=== PATIENT | female | born 1995 | race Caucasian/White ===

== ENCOUNTER 2016-05-23 13:47 | Emergency (ER) | payer BC ==
[~2016-05-23] VITALS: Ht 157.5 cm; Wt 57.2 kg
[2016-05-23 13:51] VITALS: TEMP 36.9; Ht 157.5 cm; Wt 57.2 kg
[2016-05-23] MEDS ORDERED: BCPILLS PO (15:19)
[2016-05-23 15:25] LABS: HEMATOCRIT 39.8 % (37-47); MEAN CELL VOLUME 83.4 fL (80-100); MEAN CORPUSCULAR HEMOGLOBIN 28.3 pg (25-34); MEAN CORPUSCULAR HGB CONC 33.9 g/dl (32-36); MEAN PLATELET VOLUME 10.1 fL (7.4-10.4); PLATELET COUNT 252 K/uL (130-400); RED BLOOD COUNT 4.77 M/uL (4.2-5.4); WHITE BLOOD COUNT 6.94 K/uL (4.8-10.8)
[2016-05-23 15:45] LABS: CREATININE 0.76 mg/dl (0.60-1.20)
[2016-05-23 15:46] LABS: BUN/CREATININE RATIO 12.6 (10-20); CALCIUM 9.3 mg/dl (8.5-10.1); MAGNESIUM 2.2 mg/dl (1.8-2.4); POTASSIUM 3.7 mmol/L (3.5-5.1)
[2016-05-23 15:56] LABS: THYROID STIMULATING HORMONE 2.3 uIu/ml (0.300-4.500)
--- NOTE | 2016-05-23 15:58 | EMERGENCY ROOM VISIT NOTE ---
History Report prepared by Velasquez: Annetta Chiu Under the Supervision of: Dr. Juan Cabello M.D. First contact with patient: 14:45 Chief Complaint: RECTAL BLEEDING Stated Complaint: TINGLING LEGS, LIGHT RED BM THIS MORNING Nursing Triage Summary: Red blood in stool this morning Bilateral tingling in lower extremities x 1 week. History of Present Illness The patient is a 21 year old female who presents to the Emergency Room with complaints of an episode of rectal bleeding this morning. The patient states that she noticed some specks of blood throughout her stool. This was her only episode of bloody stool. She has not eaten anything that would have changed the color of her stool. She did not have any blood on the tissue when she wiped. She has never had a similar episode in the past. The patient also complains of bilateral leg heaviness over the past week. She notes that her legs feel different when she moves. She denies any falls, pain, or tingling. She has been able to exercise without any difficulty. The patient has an appointment scheduled on Saturday for the issues with her legs, but decided to come to the ED today due to the rectal bleeding. She denies any bleeding of her gums when she brushes her teeth. She has not had any unexpected weight gain or loss. Denies urinary symptoms, vomiting, nausea, abdominal pain, or other complaints. Source of History: patient Onset: this morning Position: other (GI) Quality: other (specks of blood) Timing: other (episode) Associated Symptoms: No abdominal pain, No nausea, No urinary symptoms, No vomiting Note: Other symptoms: leg heaviness Review of Systems See HPI for pertinent positives & negatives. A total of 10 systems reviewed and were otherwise negative. Past Medical & Surgical Medical Problems: (1) No Known Active Medical Problems Family History Patient reports no known family medical history. Social History Smoking Status: Never Smoker Smokeless Tobacco Use: No Alcohol Use: none Housing Status: lives with roommate Occupation Status: student Current/Historical Medications Scheduled Control Pills ( Control Pills), 1 TAB PO DAILY Allergies Coded Allergies: No Known Allergies (Unverified , 05/23/16) Physical Exam Vital Signs Date Time Temp Pulse Resp B/P Pulse Ox O2 Delivery O2 Flow Rate FiO2 05/23/16 17:06 70 18 113/81 100 Room Air 05/23/16 13:51 36.9 109 16 141/87 98 Room Air Physical Exam GENERAL: Patient is in no acute distress. HEENT: No acute trauma, normocephalic atraumatic, mucous membranes moist, no nasal congestion, no scleral icterus. NECK: No stridor, no adenopathy, no meningismus, trachea is midline. LUNGS: Clear to auscultation bilaterally, no wheeze, no rhonchi, breath sounds equal. HEART: Without murmurs gallops or rubs, regular rate and rhythm. ABDOMEN: Soft, nontender, bowel sounds positive, no hernias, no peritonitis. RECTAL: Brown stool, heme negative, small anal tear to the 12 oclock position, no active bleeding, no mass by digital exam. EXTREMITIES: No cyanosis or edema, full range of motion of all the joints without pain or difficulty, no signs for acute trauma. NEUROLOGIC: Oriented x 3, no acute motor or sensory deficits, no focal weakness , 2/4 patellar and Achilles reflexes bilaterally, normal strength in the lower extremities bilaterally. SKIN: No rash, no jaundice, no diaphoresis. Medical Decision & Procedures Laboratory Results 05/23/16 15:10 05/23/16 15:10 Test 05/23/16 15:10 Red Blood Count 4.77 M/uL (4.2-5.4) Mean Corpuscular Volume 83.4 fL (80-100) Mean Corpuscular Hemoglobin 28.3 pg (25-34) Mean Corpuscular Hemoglobin Concent 33.9 g/dl (32-36) RDW Standard Deviation 37.6 fL (36.4-46.3) RDW Coefficient of Variation 12.4 % (11.5-14.5) Mean Platelet Volume 10.1 fL (7.4-10.4) Urine Test NEG (NEG) Anion Gap 8.0 mmol/L (3-11) Est Creatinine Clear Calc Drug Dose 92.6 ml/min Estimated GFR () 130.0 Estimated GFR (Non- 112.1 BUN/Creatinine Ratio 12.6 (10-20) Calcium Level 9.3 mg/dl (8.5-10.1) Magnesium Level 2.2 mg/dl (1.8-2.4) Total Bilirubin 1.1 mg/dl (0.2-1) Aspartate Amino Transf (AST/SGOT) 20 U/L (15-37) Alanine Aminotransferase (ALT/SGPT) 24 U/L (12-78) Alkaline Phosphatase 51 U/L (45-117) Total Protein 7.9 gm/dl (6.4-8.2) Albumin 4.0 gm/dl (3.4-5.0) Globulin 3.9 gm/dl (2.5-4.0) Albumin/Globulin Ratio 1.0 (0.9-2) Thyroid Stimulating Hormone (TSH) 2.300 uIu/ml (0.300-4.500) Lyme Disease IgG Antibody NEG (NEG) Lyme Disease IgM Antibody NEG (NEG) Laboratory results reviewed by me. Urine dip negative for blood or infection. ED Course 1446: The patient was evaluated in room B11B. A complete history and physical exam was performed. 1702: Reevaluated the patient. She was resting comfortably. Discussed results and discharge instructions: She verbalized understanding and agreement. The patient is ready for discharge. Medical Decision Differential includes but is not limited to electrolyte imbalance, , UTI, thyroid disorder, anemia, rectal or GI bleeding. There is no leukocytosis or concerning anemia. No significant electrolyte abnormality, kidney failure, hepatitis. The patient appears to be in a euthyroid state. Urine dip does not suggest infection. testing is negative. Lyme disease testing is negative. On exam, the reflexes are normal in the lower extremities and there are no focal neurologic deficits. The patient is not febrile or toxic. By exam, there was no evidence for rectal bleeding. There was a small tear to the anal mucosa which may have been bleeding earlier. The patient is doing well, she has been reassured. I will have her use some Vaseline to the anal area to help with healing. She can talk with her doctor in a few days as scheduled about her leg numbness, at this point, the cause for the lower extremity symptoms is unclear. She was encouraged to return for worsening symptoms. Impression Primary Impression: Leg numbness Additional Impression: Rectal bleeding Scribe Attestation The scribe's documentation has been prepared under my direction and personally reviewed by me in its entirety. I confirm that the note above accurately reflects all work, treatment, procedures, and medical decision making performed by me. Departure Information Dispostion Home / Self-Care Referrals No Doctor, Assigned (PCP) Rey, Kam, M.D. Patient Instructions My [facility] Additional Instructions see your doctor as scheduled Saturday return for worsening symptoms vasoline to the rectal area may help healing lab testing today was all ok Problem Qualifiers
[2016-05-23 16:59] LABS: LYME DISEASE AB IGG NEG (NEG); LYME DISEASE AB IGM NEG (NEG)
[2016-05-23 17:06] VITALS: BP 113/81; PULSE 70; O2SAT 100
== END 2016-05-23 17:13 | disposition home or self-care (01) ==
LOC: C.EDB 13:49
DX: K62.5 Hemorrhage of anus and rectum (principal); R20.2 Paresthesia of skin

== ENCOUNTER 2020-03-30 17:53 | Inpatient (IN) ==
[2020-03-30] MEDS ORDERED: OXYTOCIN 30 UNITS/500 ML BAG IV PRN ×2 (18:30→22:48)
[2020-03-30] MEDS ORDERED: BUPIVACAINE 0.25% 30 ML VIAL ONE (18:32)
[2020-03-30] MEDS ORDERED: SODIUM CHLORIDE 0.9% INJ 10 ML VIAL ONE (18:32)
[2020-03-30] MEDS ORDERED: ePHEDrine sulfate 50 MG/ML AMP ONE (18:32)
[2020-03-30] MEDS ORDERED: fentaNYL 2MCG/ML ROPIVACAINE 1.25MG/ML 100 ML BAG EPI ONE (18:33)
[2020-03-30] MEDS ORDERED: fentaNYL citrate 100 MCG/2 ML VIAL ONE (18:33)
[2020-03-30] MEDS: LACTATED RINGER'S 1,000 ML IV PRN ×2 (19:03→20:42)
[2020-03-30 19:08] LABS: Hematocrit (blood only) 33.3 % (37-47); Hemoglobin 11.7 g/dL (12.0-16.0); Mean Corpuscular Hemoglobin 31.5 pg (25-34); Mean Corpuscular Hgb Conc 35.1 g/dL (32-36); Mean Corpuscular Volume 89.8 fL (80-100); Mean Platelet Volume 11.5 fL (7.4-10.4); Platelet Count 169 K/uL (130-400); RDW Coefficient of Variation 12.7 % (11.5-14.5); RDW Standard Deviation 41.5 fL (36.4-46.3); Red Blood Count 3.71 M/uL (4.2-5.4); White Blood Count 14.05 K/uL (4.8-10.8)
--- NOTE | 2020-03-30 19:10 | Anesthesiology Consultation ---
Date of Service March 30, 2020 Assessment & Plan (1) Encounter for pre-operative examination: Chart Review Chart Review: Acceptable Risk for Surgery and Patient NOT seen in Pre Admission Testing Consults Requested none History Height/Weight Height: 5 ft 2 in Weight: 72.575 kg Allergies Allergy/AdvReac Type Severity Reaction Status Date / Time No Known Allergies Allergy Verified 03/30/20 10:09 Medications Home Medications Medication Instructions Recorded Confirmed Last Taken prenat.vits,stephon,[id number] 1 tab PO DAILY 08/31/19 03/30/20 03/30/20 Active Medications Generic Name Dose Route Start Last Admin Trade Name Freq PRN Reason Stop Dose Admin Lactated Ringer's 1,000 mls @ 125 mls/hr 03/30/20 18:30 03/30/20 19:03 Lr IV 04/01/20 18: 999 mls/hr .Q8H PRN Administration L&D Protocol Protocol Past Medical History Medical History Family planning, BCP ( control pills) maintenance No known health problems Varicella vaccination Well adult health check Past Family History Family History Other No pertinent family history Past Surgical History Surgical History No pertinent past surgical history Social History Smoking Status: Never smoker Hx Alcohol Use: No Hx Substance Use: No Physical Exam Vital Signs Last Vital Signs Temp 36.8 C 03/30/20 18:02 Pulse 88 03/30/20 19:04 Resp 20 03/30/20 18:02 BP 125/93 03/30/20 18:15 Pulse Ox 100 03/30/20 19:04 Testing Laboratory Results 03/30/20 19:00
[2020-03-30] MEDS ORDERED: CALCIUM CARBONATE 500 MG CHEWABLE TAB ONE (20:50)
[2020-03-30] MEDS ORDERED: CALCIUM CARBONATE 500 MG CHEWABLE TAB PO PRN (21:18)
--- NOTE | 2020-03-30 21:25 | History & Physical Report ---
Date of Service March 30, 2020 Assessment & Plan (1) Active labor at term: making good progress. begin 2nd stage soon. ts categ 1. Admission and Anticipated Discharge Date Admission Date: March 30, 2020 History of Present Illness Chief Complaint: rupture of membranes and labor. Primary Care Provider: Kam Le DO 25yo at 39wk ega presents to L&D with cc of srom and labor. Contractions regular. Was in office today and was 4cm. On arrival in L&D confir med gross SROM and was 4-5cm. Wanted epidural and just prior to receiving was 9cm per nurse. PNC uncomplicated. PNL rh pos, ri, gbs neg. OBH: g1 GYNH: nl paps, no stds Allergies Allergy/AdvReac Type Severity Reaction Status Date / Time No Known Allergies Allergy Verified 03/30/20 10:09 Home Medications Medication Instructions Recorded Confirmed Type prenat.vits,stephon,ewk-rtaq-cowbl 1 tab PO DAILY 08/31/19 03/30/20 History Patient History Medical History Family planning, BCP ( control pills) maintenance No known health problems Varicella vaccination Well adult health check Surgical History No pertinent past surgical history Family History Other No pertinent family history Social History (Updated 08/31/19 @ 10:53 by Opal Pacheco) Smoking Status: Never smoker Second Hand Exposure: No; Hx Alcohol Use: No Hx Substance Use: No Preferred Language: American Communication Ability: Effective Beliefs That Will Affect Care: None marital status: marital status details: Kareem Kowalski (27) [phone] Current Living Situation: Spouse Current Living Situation Comment: lives with spouse, dog current occupational status: employed current occupation: [employer] Other Information That Helps Us Care for You: No Feels Safe at Home: Yes Safety Concerns: Feels Safe At This Time Childhood Exposure to Second-Hand Smoke: No caffeine: No Dental Care, Regularly: Yes Physical Activity Frequency: 3-4 Times per Week Seatbelt Use: always Assistive Devices: None Review of Systems no fever Physical Exam Constitutional: WD/WN, vitals as above Psychiatric: A+Ox3, euthymic affect Genitourinary: Manual OB Exam: + cervical dilation (9 per nurse) OB Exam Monitor Tracing: + external FHT monitor used (125 mod variability), + external uterine monitor used (q2-3), + category I and + normal FHT variability Results & Data ([facility]) Vital Signs (Past 12 Hours) Vital Signs Temp Pulse Resp BP Pulse Ox 03/30/20 21:15 93 H 99 03/30/20 21:10 92 H 98 03/30/20 21:06 96 H 147/80 H 03/30/20 21:05 85 98 03/30/20 21:00 93 H 98 03/30/20 20:55 107 H 98 03/30/20 20:51 104 H 139/76 03/30/20 20:50 105 H 98 03/30/20 20:45 102 H 98 03/30/20 20:40 95 H 136/69 99 03/30/20 20:35 122 H 99 03/30/20 20:31 97.9 F 18 03/30/20 20:30 100 H 97 03/30/20 20:25 87 98 03/30/20 20:20 92 H 132/62 98 03/30/20 20:16 94 H 130/57 L 03/30/20 20:15 96 H 99 03/30/20 20:14 118 H 174/135 H 03/30/20 20:10 115 H 98 03/30/20 20:05 112 H 99 03/30/20 20:00 96 H 99 03/30/20 19:59 97 H 148/69 H 03/30/20 19:55 96 H 132/77 100 03/30/20 19:50 97 H 100 03/30/20 19:49 85 123/70 03/30/20 19:47 129 H 132/75 03/30/20 19:45 111 H 100 03/30/20 19:44 171 H 73 L 03/30/20 19:43 97 H 150/85 H 03/30/20 19:40 104 H 140/82 03/30/20 19:39 98 H 100 03/30/20 19:38 90 145/93 H 03/30/20 19:34 97 H 182/100 H 100 03/30/20 19:31 90 141/92 H 03/30/20 19:29 113 H 99 03/30/20 19:24 107 H 100 03/30/20 19:19 102 H 100 03/30/20 19:14 91 H 100 03/30/20 19:09 90 100 03/30/20 19:04 88 100 03/30/20 18:15 93 H 125/93 03/30/20 18:02 98.2 F 20 Code Status & VTE Plan VTE Prophylaxis Plan VTE Prophylaxis will be ordered: No Coding Level of Care Code None Diagnoses Active labor at term
--- NOTE | 2020-03-30 21:36 | Labor Progress Brief Note ---
Date of Service March 30, 2020 Subjective Reason For Note: Routine Evaluation pt had begun pushing. Assessment & Plan (1) Active labor at term: will cont 2nd stage. fhts improved to baseline 125. good variability Admission and Anticipated Discharge Date Admission Date: March 30, 2020 Physical Exam Genitourinary: on arrival in room fhts 70s. pt pushing . SVE c/c/+2 tried lateral positions and then fhts improved to 110s in knee chest. will cont to push in this position for now. Results & Data ([facility]) Vital Signs (Past 12 Hours) Vital Signs Temp Pulse Resp BP Pulse Ox 03/30/20 21:30 85 100 03/30/20 21:25 98 H 100 03/30/20 21:20 90 98 03/30/20 21:15 93 H 99 03/30/20 21:10 92 H 98 03/30/20 21:06 96 H 147/80 H 03/30/20 21:05 85 98 03/30/20 21:00 93 H 98 03/30/20 20:55 107 H 98 03/30/20 20:51 104 H 139/76 03/30/20 20:50 105 H 98 03/30/20 20:45 102 H 98 03/30/20 20:40 95 H 136/69 99 03/30/20 20:35 122 H 99 03/30/20 20:31 97.9 F 18 03/30/20 20:30 100 H 97 03/30/20 20:25 87 98 03/30/20 20:20 92 H 132/62 98 03/30/20 20:16 94 H 130/57 L 03/30/20 20:15 96 H 99 03/30/20 20:14 118 H 174/135 H 03/30/20 20:10 115 H 98 03/30/20 20:05 112 H 99 03/30/20 20:00 96 H 99 03/30/20 19:59 97 H 148/69 H 03/30/20 19:55 96 H 132/77 100 03/30/20 19:50 97 H 100 03/30/20 19:49 85 123/70 03/30/20 19:47 129 H 132/75 03/30/20 19:45 111 H 100 03/30/20 19:44 171 H 73 L 03/30/20 19:43 97 H 150/85 H 03/30/20 19:40 104 H 140/82 03/30/20 19:39 98 H 100 03/30/20 19:38 90 145/93 H 03/30/20 19:34 97 H 182/100 H 100 03/30/20 19:31 90 141/92 H 03/30/20 19:29 113 H 99 03/30/20 19:24 107 H 100 03/30/20 19:19 102 H 100 03/30/20 19:14 91 H 100 03/30/20 19:09 90 100 03/30/20 19:04 88 100 03/30/20 18:15 93 H 125/93 03/30/20 18:02 98.2 F 20 Coding Level of Care Code None Diagnoses Active labor at term
[2020-03-30] MEDS ORDERED: NALOXONE HCL 0.4 MG/1 ML VIAL/CARP IV PRN (22:05)
[2020-03-30] MEDS ORDERED: ePHEDrine sulfate 50 MG/ML AMP IV PRN (22:05)
[2020-03-30] MEDS ORDERED: NALOXONE HCL 1 MG in SODIUM CHLORIDE 0.9% 1000ML 1,000 ML IV PRN (22:05)
[2020-03-30] MEDS ORDERED: fentaNYL 2MCG/ML ROPIVACAINE 1.25MG/ML 100 ML BAG EPI PRN (22:05)
[2020-03-30] MEDS ORDERED: diphenhydrAMINE 50 MG/ML VIAL IV PRN (22:05)
--- NOTE | 2020-03-30 22:28 | Delivery Summary ---
Vaginal Delivery Summary Date of Service March 30, 2020 Vaginal Delivery Summary and 2nd Degree LAC The patient dilated to complete and pushed to deliver a viable male infant Apgars 9 and 9 via over 2nd degree perineal laceration. Mouth and nose bulb suctioned at perineum. Shoulders and body delivered with ease. Infant was vigorous and crying at . Cord clamped at 30 seconds of life and infant to maternal abdomen where the cord was then doubly clamped and cut. Placenta delivered spontaneously and intact, three-vessel cord. Hemostasis achieved with dilute pitocin and uterine massage and drainage of the bladder for approximately 75 cc under sterile conditions. Laceration repaired in usual fashion with 3-0 vicryl in layers. Right labial hematoma noted, no active bleeding site about 3x2cm ovoid. Cervix and sulci intact. EBL 300 cc. Mother and baby stable re covery. [facility] Vaginal Delivery Charge Delivery Type Details: and 2nd Degree LAC
--- NOTE | 2020-03-30 22:44 | Anesthesia Procedure Note ---
Date of Service March 30, 2020 Anesthesia Post Epidural Note Vital Signs Vital Signs: Temp Pulse Resp BP Pulse Ox 36.6 C 94 H 18 139/82 98 03/30/20 20:31 03/30/20 22:36 03/30/20 20:31 03/30/20 22:36 03/30/20 21:55 Notes Mental Status: alert / awake / arousable and participated in evaluation Nausea / Vomiting: adequately controlled Pain: adequately controlled Airway Patency, RR, SpO2: stable & adequate BP & HR: stable & adequate Hydration State: stable & adequate Neuraxial Anesthesia: was administered and sensory block is resolving Anesthetic Complications: no major complications apparent and Pt Satisfied with anesthetic care Epidural: Removed without complications and With tip intact
[2020-03-30] MEDS ORDERED: BENZOCAINE 20% AER SPR 82.5 GM CAN EXT PRN (22:48)
[2020-03-30] MEDS ORDERED: ACETAMINOPHEN 325 MG TAB PO PRN (22:48)
[2020-03-30] MEDS ORDERED: oxyCODONE/ACETAMINOPHEN 5mg/325mg TAB PO PRN (22:48)
[2020-03-30] MEDS ORDERED: HYDROCORTISONE ACETATE 25 MG SUPP PR PRN (22:48)
[2020-03-30] MEDS ORDERED: DIPHTHERIA/TETANUS/PERTUSSIS 0.5 ML SYR/VIAL IM ONE (22:48)
[2020-03-30] MEDS ORDERED: SUPERCREAM 0.870% 15 GM JAR EXT PRN (22:48)
[2020-03-30] MEDS ORDERED: OXYTOCIN 20 UNITS in LACTATED RINGER'S 1,000 ML IV SCH (22:48)
[2020-03-30] MEDS: IBUPROFEN 600 MG TAB PO PRN (23:46)
--- NOTE | 2020-03-31 07:43 | Obstetrical Progress Note ---
Date of Service <Araeblla Lezama - Last Filed: 03/31/20 08:12> March 31, 2020 Assessment & Plan <Arabella Lesly Lezama - Last Filed: 03/31/20 08:12> (1) state: PPD #1 - PNL: Rh pos, RI, GBS neg, COVID neg - Feels well today. Eating well, voiding well, ambulating well. - Pain well controlled with ibuprofen 600mg Q4H PRN - Routine care -- OOB, ambulation, diet progression as tolerated - Will get bladder scan to evaluate for concern of urinary retention; plan for cooper if needed. - After discharge will have 6 week follow-up with Dr. Barnes. Subjective <Arabellasundar Lezama - Last Filed: 03/31/20 08:12> Pasquale Kowalski is a 25 y/o female who is PPD #1 following spontaneous vaginal delivery at 39 weeks. She reports feeling well overall this morning. Minimal abdominal cramping and 2/10 pain well managed on analgesics. Voiding without dysuria; does note some concern about possible urinary retention but admits to not drinking much water over the past 2 days. Tolerating meals overnight without difficulty, nausea, or vomiting. Patient has been able to ambulate some. She is passing gas. Has persistent lochia with some improvement this morning; no passage of clots. Currently . Review of Systems Denies fever or chills. Denies shortness of breath or cough. Denies chest pain. Denies breast pain. Denies dysuria. Denies leg pain or leg swelling. Denies headache or changes in vision. Physical Exam <Arabella Lezama - Last Filed: 03/31/20 08:12> General: Alert, oriented. No acute distress. Cardiac: Regular rate and rhythm. No murmurs. Respiratory: Clear to auscultation bilaterally a/p, no wheezes/rales/rhonchi. No increased work of breathing. Symmetrical chest rise. No respiratory distress. Abdomen: Soft, nontender, nondistended. Bowel sounds present. Uterus: Uterine fundus firm, palpable at umbilicus on left. Lower Extremities: No lower extremity edema or swelling. No deep calf pain. Velia's negative bilaterally. Results & Data ([facility]) <Arabella PetersonRoland Lezama, DO - Last Filed: 03/31/20 08:12> Vital Signs (Past 12 Hours) Vital Signs Temp Pulse Pulse Resp BP BP Pulse Ox 03/31/20 03:50 36.5 C 77 18 122/78 99 03/31/20 01:30 36.9 C 83 18 116/73 98 03/31/20 00:50 37 C 87 18 130/69 98 03/31/20 00:14 37 C 83 18 136/76 99 03/31/20 00:13 94 H 180/89 H 03/30/20 23:36 37.2 C 80 18 130/81 98 03/30/20 23:21 88 18 130/78 03/30/20 23:06 90 127/73 03/30/20 23:03 37.2 C 80 18 129/69 99 03/30/20 22:45 37.4 C 82 18 122/79 03/30/20 22:36 94 H 139/82 03/30/20 22:30 37.4 C 104 H 18 134/72 99 03/30/20 22:21 92 H 137/76 03/30/20 22:15 96 H 143/84 H 03/30/20 22:14 96 H 139/82 03/30/20 21:55 106 H 98 03/30/20 21:50 113 H 99 03/30/20 21:45 94 H 99 03/30/20 21:40 89 100 03/30/20 21:35 95 H 100 03/30/20 21:30 85 100 03/30/20 21:25 98 H 100 03/30/20 21:20 90 98 03/30/20 21:15 93 H 99 03/30/20 21:10 92 H 98 03/30/20 21:06 96 H 147/80 H 03/30/20 21:05 85 98 03/30/20 21:00 93 H 98 03/30/20 20:55 107 H 98 03/30/20 20:51 104 H 139/76 03/30/20 20:50 105 H 98 03/30/20 20:45 102 H 98 03/30/20 20:40 95 H 136/69 99 03/30/20 20:35 122 H 99 03/30/20 20:31 36.6 C 18 03/30/20 20:30 100 H 97 03/30/20 20:25 87 98 03/30/20 20:20 92 H 132/62 98 03/30/20 20:16 94 H 130/57 L 03/30/20 20:15 96 H 99 03/30/20 20:14 118 H 174/135 H 03/30/20 20:10 115 H 98 03/30/20 20:05 112 H 99 03/30/20 20:00 96 H 99 03/30/20 19:59 97 H 148/69 H 03/30/20 19:55 96 H 132/77 100 03/30/20 19:50 97 H 100 03/30/20 19:49 85 123/70 03/30/20 19:47 129 H 132/75 03/30/20 19:45 111 H 100 03/30/20 19:44 171 H 73 L 03/30/20 19:43 97 H 150/85 H <Nataliia Barnes MD, FACOG - Last Filed: 03/31/20 08:42> Co-Signing Physician Notes Resident Physician Supervision Note: I was present with Dr. Lezama during the history and exam. I discussed the case with the resident and agree with the findings and plan as documented in the note. Any exceptions or clarifications are listed here: doing well, routine care. need to see if emptying bladder well, with bladder scan. nurse aware. Documented By: Nataliia Barnes MD, FACOG Resident Activity Tracking <Arabella Lezama, DO - Last Filed: 03/31/20 08:12> Resident Involvement: Resident Care Provided Care Provided: OB Delivery
[2020-03-31] MEDS: IBUPROFEN 600 MG TAB PO PRN ×3 (08:01→21:33)
[2020-03-31] MEDS: DOCUSATE SODIUM 100 MG CAP PO SCH ×2 (08:01→21:31)
[2020-03-31 22:33] VITALS: O2SAT 99
[2020-04-01] MEDS: IBUPROFEN 600 MG TAB PO PRN (05:21)
[2020-04-01] MEDS: DOCUSATE SODIUM 100 MG CAP PO SCH (07:42)
--- NOTE | 2020-04-01 07:42 | Obstetrical Progress Note ---
Date of Service <Arabella Lezama DO - Last Filed: 04/01/20 07:54> April 01, 2020 Assessment & Plan <Arabella Lezama DO - Last Filed: 04/01/20 07:54> (1) state: PPD #2 - PNL: Rh pos, RI, GBS neg, COVID neg - Feels well today. Eating well and ambulating well. - Currently w/ cooper catheter in place due to urinary retention. Will remove cooper catheter for bladder challenge. Monitor urine output. - Pain well controlled with ibuprofen 600mg Q4H PRN - Routine care -- OOB, ambulation, continue diet progression as tolerated - After discharge will have 6 week follow-up with Dr. Barnes. Subjective <Arabella Lezama DO - Last Filed: 04/01/20 07:54> Pasquale Kowalski is a 25 y/o female who is PPD #2 following spontaneous vaginal delivery at 39 weeks. She reports feeling well overall this morning. Minimal abdominal cramping and 2/10 pain well managed on analgesics. Patient did have urinary retention yesterday and a cooper catheter was placed yesterday in the early afternoon. Patient states that she "does not feel as full" and this intervention has provided relief. Tolerating meals overnight without difficulty. Patient has been able to ambulate some. + passing gas; no bowel movement. Has persistent lochia with some improvement this morning. Currently . Review of Systems Denies fever or chills. Denies shortness of breath or cough. Denies chest pain. Denies breast pain. Denies dysuria. Denies leg pain or leg swelling. Denies headache or changes in vision. Physical Exam <Arabella Lezama DO - Last Filed: 04/01/20 07:54> General: Alert, oriented. No acute distress. Cardiac: Regular rate and rhythm. No murmurs. Respiratory: Clear to auscultation bilaterally a/p, no wheezes/rales/rhonchi. No increased work of breathing. Symmetrical chest rise. No respiratory distress. Abdomen: Soft, nontender, nondistended. Bowel sounds present. Uterus: Uterine fundus firm, palpable 1 cm below umbilicus. Lower Extremities: No lower extremity edema or swelling. No deep calf pain. Cassandra n's negative bilaterally. Results & Data ([facility]) <Arabella Lezama DO - Last Filed: 04/01/20 07:54> Vital Signs (Past 12 Hours) Vital Signs Temp Pulse Resp BP Pulse Ox 04/01/20 02:00 36.6 C 79 16 113/72 99 03/31/20 21:35 36.7 C 88 18 125/82 99 <Freddie Vale MD - Last Filed: 04/01/20 08:15> Co-Signing Physician Notes Patient seen and evaluated and agree with the above finding and plan. Stable for discharge. Resident Activity Tracking <Arabella Lezama DO - Last Filed: 04/01/20 07:54> Resident Involvement: Resident Care Provided Care Provided: OB Delivery
[2020-04-01 08:05] VITALS: BP 128/91; PULSE 80; TEMP 97.3
== END 2020-04-01 11:30 | disposition home or self-care (01) | DRG 807 ==
LOC: OPB 17:53 → 4S1 17:54 → 4S2 03-31 01:35

== ENCOUNTER 2021-09-02 00:02 | Inpatient (IN) ==
--- NOTE | 2021-09-02 00:45 | History & Physical Report ---
Date of Service September 02, 2021 Assessment & Plan (1) Encounter for supervision of normal in multigravida: Plan: Contractions - will allow patient to walk halls, recheck cervix to eval for labor. History of Present Illness Chief Complaint: contractions Primary Care Provider: Kam Le DO 26yo @ 38 06/08, presents with ctx. +FM, no VB. No ROM. with Close interval -Delivered 03/30/20 MOderna x 2 last in June has had flu vaccine. Right cp cystic area, ? head shape, narrow frontal area, pericardial fluid noted 2.4 mm *MFM consult (05/16/21 @ [facility] [place]) *mildly dilated right renal pelvis on anatomy @ [facility] *US @ 32weeks to assess pyelectasis @ [facility] [place] (07/19/21)-normal kidneys; no pyelectasis seen *cfdna low risk Allergies Allergy/AdvReac Type Severity Reaction Status Date / Time No Known Allergies Allergy Verified 08/28/21 08:03 Home Medications Medication Instructions Recorded Confirmed Type prenat.vits,stephon,xfb-onos-jenxr 1 tab PO DAILY 08/31/19 08/28/21 History docusate sodium [Colace] PO PRN 01/23/21 08/28/21 History calcium carbonate [Tums] PO 07/21/21 08/28/21 History Patient History Medical History (Updated 01/23/21 @ 13:56 by Mariya Castro, ONEL) Active labor at term Family planning, BCP ( control pills) maintenance No known health problems state Supervision of normal first Varicella vaccination Well adult health check Surgical History No pertinent past surgical history Family History (Updated 01/23/21 @ 16:07 by Mariya Castro RN) Other No pertinent family history Denies family history of Ovarian cancer Prostate cancer Breast cancer Colorectal cancer Social History (Updated 01/23/21 @ 16:09 by Mariya Castro, ONEL) Smoking Status: Never smoker Second Hand Exposure: No; Hx Alcohol Use: No Hx Substance Use: No Preferred Language: Estonian Communication Ability: Effective Visual Impairment: No Limitations Hearing Ability: Normal Beliefs That Will Affect Care: None marital status: marital status details: Kareem Starkster (28) [phone] Current Living Situation: Spouse and Family Current Living Situation Comment: lives with spouse and son, dog current occupational status: employed current occupation: [employer] Feels Safe at Home: Yes Safety Concerns: Feels Safe At This Time Childhood Exposure to Second-Hand Smoke: No caffeine: No Dental Care, Regularly: Yes Physical Activity Frequency: 3-4 Times per Week Seatbelt Use: always Assistive Devices: None Review of Systems All systems reviewed & are unremarkable except as noted in HPI & below Physical Exam Constitutional: WD/WN, vitals as above Respiratory: normal respiratory effort, lungs clear to auscultation no respiratory distress Cardiovascular: Rate/Rhythm: regular rate and regular rhythm Gastrointestinal (Abdomen): Inspection/Auscultation: abdomen normal to inspection Percussion/Palpation: abdomen soft; abdomen nontender Gravid. No s/s chorio or abruption. Skin: no rashes, warm and dry Psychiatric: A+Ox3, euthymic affect Results & Data ([facility]) Vital Signs (Past 12 Hours) Vital Signs Temp Pulse Resp BP 09/02/21 00:13 36.7 C 93 H 18 129/79 Monitoring External Monitor FHT cat 1 [place] Q 2-4 SVE 3/80/-3 Coding Level of Care Code None Diagnoses Encounter for supervision of normal in multigravida Z34.80
[2021-09-02] MEDS ORDERED: OXYTOCIN 30 UNITS/500 ML BAG IV PRN ×3 (02:57→10:37)
--- NOTE | 2021-09-02 03:00 | Labor Progress Brief Note ---
Date of Service September 02, 2021 Subjective Ctx have gotten stronger. FHT Cat 1 [place] Q 2-3 SVE 4-5/80/-3. Bulging membranes. Asking for epidural. Results & Data ([facility]) Vital Signs (Past 12 Hours) Vital Signs Temp Pulse Resp BP 09/02/21 00:13 36.7 C 93 H 18 129/79 Coding Level of Care Code None
[2021-09-02] MEDS: LACTATED RINGER'S 1,000 ML IV PRN ×2 (03:15→04:22)
[2021-09-02] MEDS ORDERED: SODIUM CHLORIDE 0.9% INJ 10 ML VIAL ONE (03:53)
[2021-09-02] MEDS ORDERED: fentaNYL citrate 100 MCG/2 ML VIAL ONE (03:53)
[2021-09-02] MEDS ORDERED: ePHEDrine sulfate 50 MG/ML AMP ONE (03:53)
[2021-09-02] MEDS ORDERED: fentaNYL 2MCG/ML ROPIVACAINE 1.25MG/ML 100 ML BAG EPI ONE (03:53)
[2021-09-02] MEDS ORDERED: BUPIVACAINE 0.25% 30 ML VIAL ONE (03:53)
[2021-09-02 03:55] LABS: Hematocrit (blood only) 37.9 % (37-47); Mean Corpuscular Hemoglobin 31.3 pg (25-34); Mean Corpuscular Hgb Conc 34.3 g/dL (32-36); Mean Corpuscular Volume 91.1 fL (80-100); Mean Platelet Volume 10.9 fL (7.4-10.4); Platelet Count 221 K/uL (130-400); RDW Coefficient of Variation 12.4 % (11.5-14.5); RDW Standard Deviation 41.3 fL (36.4-46.3); Red Blood Count 4.16 M/uL (4.2-5.4); White Blood Count 16.24 K/uL (4.8-10.8)
[2021-09-02] MEDS ORDERED: NALBUPHINE HCL INJ 10 MG/ML AMP IV PRN (04:07)
[2021-09-02] MEDS ORDERED: fentaNYL 2MCG/ML ROPIVACAINE 1.25MG/ML 100 ML BAG EPI PRN (04:07)
[2021-09-02] MEDS ORDERED: NALOXONE HCL 0.4 MG/1 ML VIAL/CARP IV PRN (04:07)
[2021-09-02] MEDS ORDERED: diphenhydrAMINE 50 MG/ML VIAL IV PRN (04:07)
[2021-09-02] MEDS ORDERED: ePHEDrine sulfate 50 MG/ML AMP IV PRN (04:07)
[2021-09-02] MEDS ORDERED: NALOXONE HCL 1 MG in SODIUM CHLORIDE 0.9% 1000ML 1,000 ML IV PRN (04:07)
[2021-09-02] MEDS ORDERED: ONDANSETRON INJ 2 MG/ML 2 ML VIAL IV PRN (04:07)
[2021-09-02] MEDS ORDERED: LIDOCAINE 2%/EPINEPHRINE 1:200,000 20 ML SDV ONE (04:11)
--- NOTE | 2021-09-02 04:11 | Anesthesiology Consultation ---
Date of Service September 02, 2021 Assessment & Plan (1) Encounter for pre-operative examination: Chart Review Chart Review: Patient NOT seen in Pre Admission Testing and Acceptable Risk for Labor Epidural Consults Requested none History Height/Weight Height: 5 ft 2 in Weight: 71.214 kg Allergies Allergy/AdvReac Type Severity Reaction Status Date / Time No Known Allergies Allergy Verified 08/28/21 08:03 Medications Home Medications Medication Instructions Recorded Confirmed Last Taken prenat.vits,stephon,xeu-walh-hpbyt 1 tab PO DAILY 08/31/19 09/02/21 03/30/20 Active Medications Generic Name Dose Route Start Last Admin Trade Name Freq PRN Reason Stop Dose Admin Lactated Ringer's 1,000 mls @ 125 mls/hr 09/02/21 02:57 09/02/21 04:22 Lr IV 09/04/21 02:56 125 mls/hr .Q8H PRN Administration L&D Protocol Protocol Past Medical History Medical History Active labor at term Family planning, BCP ( control pills) maintenance No known health problems state Supervision of normal first Varicella vaccination Well adult health check Exercise / Class Metabolic Activity II 4-5 Yardwork/Stairs/Walk up hill Past Family History Family History Other No pertinent family history Denies family history of Ovarian cancer Prostate cancer Breast cancer Colorectal cancer Past Surgical History Surgical History No pertinent past surgical history Past Anesthesia History No Hx of Anesthesia Complications and No Family Hx of Anesthesia Complications History of PONV No Hx of PONV and No Hx of Motion Sickness Social History Smoking Status: Never smoker Hx Alcohol Use: No Hx Substance Use: No Physical Exam Vital Signs Last Vital Signs Temp 36.7 C 09/02/21 00:13 Pulse 93 H 09/02/21 04:30 Resp 18 09/02/21 00:13 BP 129/79 09/02/21 00:13 Pulse Ox 92 09/02/21 04:30 Testing Laboratory Results 09/02/21 03:16
--- NOTE | 2021-09-02 07:05 | Labor Progress Brief Note ---
Date of Service September 02, 2021 Subjective Now comfortable with epidural. FHT Cat 1 [place] q 2-3 SVE /-1 AROM clear fluid. Assessment & Plan Admission and Anticipated Discharge Date Admission Date: September 02, 2021 Results & Data ([facility]) Vital Signs (Past 12 Hours) Vital Signs Temp Pulse Resp BP Pulse Ox 09/02/21 07:03 94 H 92 09/02/21 07:00 93 H 97 09/02/21 06:58 84 93 09/02/21 06:55 76 95 09/02/21 06:52 84 116/66 09/02/21 06:51 96 H 94 09/02/21 06:50 90 96 09/02/21 06:45 75 96 09/02/21 06:40 83 95 09/02/21 06:37 72 115/58 L 09/02/21 06:35 75 96 09/02/21 06:31 18 09/02/21 06:30 78 99 09/02/21 06:25 91 H 96 09/02/21 06:24 91 H 94 09/02/21 06:20 97 H 96 09/02/21 06:15 99 H 91 09/02/21 06:10 111 H 96 09/02/21 06:08 96 H 117/70 93 09/02/21 06:05 105 H 96 09/02/21 06:00 81 94 09/02/21 05:59 76 94 09/02/21 05:55 75 96 09/02/21 05:54 106 H 94 09/02/21 05:53 72 126/75 09/02/21 05:49 99 H 96 09/02/21 05:48 82 94 09/02/21 05:44 76 96 09/02/21 05:42 97 H 94 09/02/21 05:39 114 H 96 09/02/21 05:37 86 122/64 09/02/21 05:36 83 93 09/02/21 05:34 100 H 97 09/02/21 05:31 18 09/02/21 05:29 84 97 09/02/21 05:24 83 95 09/02/21 05:22 96 H 122/76 09/02/21 05:20 83 94 09/02/21 05:19 83 95 09/02/21 05:14 82 95 09/02/21 05:09 86 95 09/02/21 05:08 76 94 09/02/21 05:07 91 H 125/79 09/02/21 05:04 79 96 09/02/21 05:02 87 94 09/02/21 05:01 18 09/02/21 04:59 99 H 96 09/02/21 04:54 89 95 09/02/21 04:50 102 H 18 132/72 09/02/21 04:49 80 95 09/02/21 04:48 96 H 140/67 09/02/21 04:45 18 09/02/21 04:44 89 134/81 95 09/02/21 04:42 84 137/87 09/02/21 04:40 83 18 128/78 94 09/02/21 04:39 87 94 09/02/21 04:38 94 H 119/68 09/02/21 04:36 93 H 123/73 09/02/21 04:35 18 09/02/21 04:34 92 H 131/68 95 09/02/21 04:32 91 H 125/70 09/02/21 04:30 89 135/87 92 09/02/21 04:29 93 H 97 09/02/21 04:24 88 96 09/02/21 04:19 101 H 97 09/02/21 04:14 86 97 09/02/21 04:09 82 98 09/02/21 00:13 36.7 C 93 H 18 129/79 Coding Level of Care Code None
--- NOTE | 2021-09-02 10:26 | Delivery Summary ---
Vaginal Delivery Summary Date of Service September 02, 2021 Vaginal Delivery Summary Spontaneous vaginal delivery the patient has been admitted by Dr. Rose earlier in the evening requested epidural as her second baby uncomplicated delivered at a baby in occiput anterior position. Fluid was clear no nuchal cord no excessive force live vigorous female cord clamped and cord gases obtained second-degree tear repaired with 3-0 Vicryl sponge and instrument counts correct estimated blood loss 250 mL should be noted that the placenta was removed with gentle traction and IV Pitocin started after removal of the placenta
--- NOTE | 2021-09-02 10:32 | Anesthesia Procedure Note ---
Date of Service September 02, 2021 Anesthesia Post Epidural Note Vital Signs Vital Signs: Temp Pulse Resp BP Pulse Ox 36.8 C 120 H 20 139/84 86 L 09/02/21 07:30 09/02/21 10:05 09/02/21 07:30 09/02/21 09:52 09/02/21 10:05 Notes Mental Status: alert / awake / arousable and participated in evaluation Nausea / Vomiting: adequately controlled Pain: adequately controlled Airway Patency, RR, SpO2: stable & adequate BP & HR: stable & adequate Hydration State: stable & adequate Neuraxial Anesthesia: was administered and sensory block is resolving Anesthetic Complications: no major complications apparent Epidural: Removed without complications and With tip intact
[2021-09-02] MEDS ORDERED: DIPHTHERIA/TETANUS/PERTUSSIS 0.5 ML SYR/VIAL IM ONE (10:37)
[2021-09-02] MEDS ORDERED: oxyCODONE/ACETAMINOPHEN 5mg/325mg TAB PO PRN (10:37)
[2021-09-02] MEDS ORDERED: bisacodyL 10 MG SUPP PR PRN (10:37)
[2021-09-02] MEDS ORDERED: HYDROCORTISONE ACETATE 25 MG SUPP PR PRN (10:37)
[2021-09-02] MEDS ORDERED: ACETAMINOPHEN 325 MG TAB PO PRN (10:37)
[2021-09-02] MEDS: BENZOCAINE 20% AER SPR 82.5 GM CAN EXT PRN ×2 (11:37→14:10)
[2021-09-02] MEDS: IBUPROFEN 600 MG TAB PO PRN ×3 (14:45→23:32)
[2021-09-02] MEDS: DOCUSATE SODIUM 100 MG CAP PO SCH (21:07)
[2021-09-03] MEDS ORDERED: PRENATAL VITAMIN 1 TAB PO SCH (08:00)
--- NOTE | 2021-09-03 08:34 | Obstetrical Progress Note ---
Date of Service September 03, 2021 Assessment & Plan (1) Encounter for supervision of normal in multigravida: meets criteria, home Subjective Ambulation: ambulating normally Voiding: no voiding problems Passing Gas:: Yes Diet Tolerance:: regular diet Lochia:: Small Feeding Type:: breast feeding Results & Data ([facility]) Vital Signs (Past 12 Hours) Vital Signs Temp Pulse Resp BP Pulse Ox 09/03/21 03:30 97.9 F 88 16 111/72 98 09/02/21 23:26 97.9 F 78 16 119/84 98
[2021-09-03] MEDS: DOCUSATE SODIUM 100 MG CAP PO SCH (09:25)
[2021-09-03] MEDS: IBUPROFEN 600 MG TAB PO PRN (09:37)
[2021-09-03] MEDS ORDERED: bisacodyL 5 MG TABEC PO SCH (20:00)
== END 2021-09-03 12:10 | disposition home or self-care (01) | DRG 807 ==
LOC: OPB 00:02 → 4S1 00:08 → 4E2 14:01

== ENCOUNTER 2023-04-28 19:54 | Inpatient (IN) ==
[2023-04-28] MEDS ORDERED: LIDOCAINE 1% LOCAL 20 ML VIAL INFIL PRN (22:46)
--- NOTE | 2023-04-28 22:51 | History & Physical Report ---
Date of Service April 28, 2023 Assessment & Plan (1) : Plan: 28 yo at 38 3/7 wga presents in labor VSS Fetus cat 1 Labor - expectant management GBS neg desires epidural History of Present Illness Chief Complaint: ctx Primary Care Provider: Kam Le DO 28 yo at 38 3/7 wga presents w/ ctx increasing in freq and intensity. +FM; dnenies LOF, VB. 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 Allergies Allergy/AdvReac Type Severity Reaction Status Date / Time No Known Allergies Allergy Verified 04/28/23 20:09 Home Medications Medication Instructions Recorded Confirmed Type prenat.vits,stephon,cby-jpvh-bwmkc 1 tab PO DAILY 08/31/19 04/28/23 History ferrous sulfate 325 mg (65 mg 325 mg PO Q OTHER DAY 02/28/23 04/28/23 History iron) tablet (FeroSul) RSV vac, preF A and preF B(PF) 120 0.5 ml IM ONCE #1 ea 03/28/23 04/25/23 Rx mcg/0.5 mL IM solution (Abrysvo) Patient History Medical History Encounter for supervision of normal in multigravida state Active labor at term Encounter for pre-operative examination Supervision of normal first Varicella vaccination Family planning, BCP ( control pills) maintenance Well adult health check No known health problems Surgical History No pertinent past surgical history Family History Other No pertinent family history Denies family history of Ovarian cancer Prostate cancer Breast cancer Colorectal cancer Social History Smoking Status: Never smoker Second Hand Exposure: No; Do You Dip or Chew Tobacco: No; Hx Alcohol Use: No Hx Substance Use: No Preferred Language: Serbian Communication Ability: Effective Visual Impairment: No Limitations Hearing Ability: Normal 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 Beliefs That Will Affect Care: None marital status: marital status details: Kareem Kowalski (28) [phone] Current Living Situation: Family Current Living Situation Comment: lives with spouse and 2 kids, dog current occupational status: employed current occupation: [employer] Other Information That Helps Us Care for You: No Feels Safe at Home: Yes Safety Concerns: Feels Safe At This Time Childhood Exposure to Second-Hand Smoke: No caffeine: No Dental Care, Regularly: Yes Physical Activity Frequency: 3-4 Times per Week Seatbelt Use: always Assistive Devices: None Physical Exam Genitourinary: OB Exam Monitor Tracing: + external FHT monitor used, + external uterine monitor used and + category I SVE 3.5/50/-2 by nursing Results & Data Vital Signs (Past 12 Hours) Vital Signs Temp Pulse Resp BP 04/28/23 20:10 97.5 F L 18 04/28/23 20:08 96 H 138/88 Laboratory Results OB Labs: Blood Type AB Positive 10/11/22 Antibody Screen NEGATIVE 10/11/22 Hemoglobin 10.6 g/dl (12.0-16.0) L 02/15/23 Hematocrit 31.1 % (37.0-47.0) L 02/15/23 Mean Corpuscular Volume 86.9 fL (80.0-100.0) 10/11/22 Platelet Count 272 K/uL (130-400) 10/11/22 Rubella IgG Antibody Immune (Immune) 10/11/22 Rapid Plasma Reagin Nonreactive (Nonreactive) 10/11/22 Hepatitis B Surface Antigen Neg (Neg) 02/02/21 Hepatitis B Surface Antigen. NON-REACTIVE (NON-REACTIVE) 10/11/22 Hepatitis C Antibody Neg (Neg) 02/02/21 Hepatitis C Antibody (EIA) NON-REACTIVE (NON-REACTIVE) 10/11/22 HIV (1&2) Ab and P24 Ag, 4th Gener Neg (Neg) 02/02/21 HIV (1&2) Ag and Ab Confirmation NON-REACTIVE (NON-REACTIVE) 10/11/22 Glucose 1 Hour 50 gm Load 107 mg/dl (70-130) 02/15/23 OB Optional Labs: Chlamydia trachomatis RNA Not Detected (NotDetected) 10/11/22 Neisseria gonorrhoeae RNA Not Detected (NotDetected) 10/11/22 Labs Reviewed: declines cf/sma--akh cfdna-low risk--mln GBS neg Diagnostic Findings posterior plac Coding Level of Care Code None Diagnoses Z34.90
[2023-04-28] MEDS: LACTATED RINGER'S 1,000 ML IV PRN (23:00)
[2023-04-28 23:58] LABS: Hematocrit (blood only) 35.7 % (37.0-47.0); Hemoglobin 12.1 g/dl (12.0-16.0); Mean Corpuscular Hemoglobin 30.6 pg (25.0-34.0); Mean Corpuscular Hgb Conc 33.9 g/dL (32.0-36.0); Mean Corpuscular Volume 90.4 fL (80.0-100.0); Mean Platelet Volume 11.2 fL (9.4-12.4); Platelet Count 221 K/uL (130-400); RDW Coefficient of Variation 12.9 % (11.5-14.5); RDW Standard Deviation 42.1 fL (36.4-46.3); Red Blood Count 3.95 M/uL (4.20-5.40); White Blood Count 12.45 K/ul (4.8-10.8)
[2023-04-29] MEDS ORDERED: NALBUPHINE HCL 5 MG in SYRINGE 0 ML IV PRN (00:06)
[2023-04-29] MEDS ORDERED: NALOXONE HCL 1 MG in SODIUM CHLORIDE 0.9% 1,000 ML IV PRN (00:06)
[2023-04-29] MEDS ORDERED: fentaNYL citrate PF 100 MCG/2 ML VIAL EPI PRN (00:06)
[2023-04-29] MEDS ORDERED: fentANYL 2 MCG/ML BUPIVacaine 0.125%-NSS 100ML BAG EPI PRN (00:06)
[2023-04-29] MEDS ORDERED: LIDOCAINE 2% MPF LOCAL 5 ML VIAL EPI PRN (00:06)
[2023-04-29] MEDS ORDERED: diphenhydrAMINE 50 MG/ML VIAL IV PRN (00:06)
[2023-04-29] MEDS ORDERED: ePHEDrine sulfate 50 MG/ML AMP IV PRN (00:06)
[2023-04-29] MEDS ORDERED: NALOXONE HCL 0.4 MG/1 ML VIAL/CARP IV PRN (00:06)
[2023-04-29] MEDS ORDERED: SODIUM CHLORIDE 0.9% PF INJ 10 ML VIAL EPI PRN (00:06)
[2023-04-29] MEDS ORDERED: ROPIVACAINE 0.5% PF 5 MG/ML 20 ML VIAL EPI PRN (00:06)
[2023-04-29] MEDS ORDERED: BUPIVACAINE 0.25% PF 30 ML VIAL EPI PRN (00:06)
[2023-04-29] MEDS ORDERED: ONDANSETRON INJ 2 MG/ML 2 ML VIAL IV PRN (00:06)
--- NOTE | 2023-04-29 00:09 | Anesthesiology Consultation ---
Date of Service April 29, 2023 Assessment & Plan (1) Encounter for pre-operative examination: Chart Review Chart Review: Patient NOT seen in Pre Admission Testing and Acceptable Risk for Labor Epidural Consults Requested none History Height/Weight Height: 5 ft 2 in Weight: 75.75 kg Allergies Allergy/AdvReac Type Severity Reaction Status Date / Time No Known Allergies Allergy Verified 04/28/23 20:09 Medications Home Medications Medication Instructions Recorded Confirmed Last Taken prenat.vits,stephon,ctu-ttre-yicqh 1 tab PO DAILY 08/31/19 04/28/23 1 Day Ago ~04/27/23 ferrous sulfate 325 mg (65 mg 325 mg PO Q OTHER DAY 02/28/23 04/28/23 1 Day Ago iron) tablet (FeroSul) ~04/27/23 RSV vac, preF A and preF B(PF) 120 0.5 ml IM ONCE #1 ea 03/28/23 04/25/23 Unknown mcg/0.5 mL IM solution (Abrysvo) Active Medications Generic Name Dose Route Start Last Admin Trade Name Freq PRN Reason Stop Dose Admin Lactated Ringer's 1,000 mls @ 125 mls/hr 04/28/23 22:46 04/28/23 23:30 Lr IV 04/30/23 22:45 125 mls/hr .Q8H PRN Infusion L&D Protocol Protocol Past Medical History Medical History (Updated 04/29/23 @ 00:09 by Aleksey Cali MD) Encounter for pre-operative examination Encounter for supervision of normal in multigravida state Active labor at term Encounter for pre-operative examination Supervision of normal first Varicella vaccination Family planning, BCP ( control pills) maintenance Well adult health check No known health problems Exercise / Class Metabolic Activity II 4-5 Yardwork/Stairs/Walk up hill Past Family History Family History Other No pertinent family history Denies family history of Ovarian cancer Prostate cancer Breast cancer Colorectal cancer Past Surgical History Surgical History No pertinent past surgical history Past Anesthesia History No Hx of Anesthesia Complications and No Family Hx of Anesthesia Complications History of PONV No Hx of PONV and No Hx of Motion Sickness Social History Smoking Status: Never smoker Do You Dip or Chew Tobacco: No Hx Alcohol Use: No Hx Substance Use: No Physical Exam Vital Signs Last Vital Signs Temp 36.4 C L 04/28/23 23:00 Pulse 88 04/29/23 00:24 Resp 18 04/28/23 23:00 BP 120/86 04/29/23 00:24 Pulse Ox 99 04/29/23 00:23 Testing Laboratory Results 04/28/23 23:00
[2023-04-29] MEDS: BUPIVACAINE 0.25% PF 30 ML VIAL ONE (00:22)
[2023-04-29] MEDS: fentaNYL citrate PF 100 MCG/2 ML VIAL ONE (00:22)
[2023-04-29] MEDS: fentANYL 2 MCG/ML BUPIVacaine 0.125%-NSS 100ML BAG ONE (00:23)
[2023-04-29] MEDS: LIDOCAINE 2%/EPINEPHRINE 1:200,000 20 ML PF ONE (00:26)
[2023-04-29] MEDS: OXYTOCIN 30 UNITS/NSS 30 UNITS/500 ML BAG IV PRN (02:32)
--- NOTE | 2023-04-29 02:48 | Delivery Summary ---
Vaginal Delivery Summary Date of Service April 29, 2023 Vaginal Delivery Summary and 2nd Degree LAC PREOPERATIVE DIAGNOSIS: 1. Single intrauterine at 38 4/7 2. Labor POSTOPERATIVE DIAGNOSIS: 1. Single intrauterine at 38 4/7 2. Labor 3. Delivered PROCEDURE: 1. Normal spontaneous vaginal delivery. SURGEON: Monalisa Valentin MD ANESTHESIA: Epidural. ESTIMATED BLOOD LOSS: 300 mL FLUIDS: Continuous LR. URINE OUTPUT: None. COMPLICATIONS: None. CONDITION: Stable. INDICATIONS: 28 yo yo at 38 4/7 wga presents with contractions increasing in frequency and intensity. She was found to be 1.5cm and then progressed to 3cm during brian period. She received an epidural for pain control and continued to progress to complete. She underwent AROM and desired to push FINDINGS: A viable female , weight pending with Apgars of 8 and 9 at 1 and 5 minutes respectively. SPECIMEN: Cord blood OPERATIVE REPORT: The patient progressed to 10 cm, 100% effaced and +2 station, pushed over intact perineum with anesthesia to deliver a viable female , weight and Apgars as above. Head of delivered in AYSHA position. No nuchal cord was present. Body and shoulders were delivered without difficulty. was delivered to maternal abdomen and nursing staff. Delayed cord clamping was performed for 60 seconds. Cord was clamped and cut. Cord blood was obtained. Placenta delivered spontaneously intact with 3-vessel cord. IV oxytocin and fundal massage were given for excellent hemostasis. Vagina, cervix, perineum, and placenta were inspected. A second degree laceration was repaired using 3-0 vicryl, there was excellent hemostasis. Sponge and needle counts correct x2. No sponges were left behind. Mother and stable in immediate period[place] [facility] [place] Delivery Charge Vaginal Delivery Codes: 29999 global code for the antepartum, delivery, and post- Delivery Type Details: and 2nd Degree LAC
[2023-04-29] MEDS ORDERED: HYDROCORTISONE ACETATE 25 MG SUPP PR PRN (03:08)
[2023-04-29] MEDS ORDERED: OXYTOCIN 30 UNITS/NSS 30 UNITS/500 ML BAG IV PRN (03:08)
--- NOTE | 2023-04-29 04:40 | Anesthesia Procedure Note ---
Date of Service April 29, 2023 Anesthesia Post Epidural Note Vital Signs Vital Signs: Temp Pulse Resp BP Pulse Ox 36.4 C L 85 18 115/70 97 04/29/23 02:45 04/29/23 04:33 04/29/23 04:15 04/29/23 04:33 04/29/23 03:13 Pain Intensity Bilateral Abdomen: Pain Intensity: 0 Notes Mental Status: alert / awake / arousable and participated in evaluation Patient Amnestic to Procedure: No Nausea / Vomiting: adequately controlled Pain: adequately controlled Airway Patency, RR, SpO2: stable & adequate BP & HR: stable & adequate Hydration State: stable & adequate Neuraxial Anesthesia: was administered and sensory block is resolving Anesthetic Complications: no major complications apparent and Pt Satisfied with anesthetic care Epidural: Removed without complications and With tip intact
[2023-04-29] MEDS: IBUPROFEN 600 MG TAB PO PRN (04:49)
[2023-04-29] MEDS: SODIUM CHLORIDE 0.9% PF INJ 10 ML VIAL EPI STA (06:42)
[2023-04-29] MEDS: BUPIVACAINE 0.25% PF 30 ML VIAL EPI STA (06:42)
[2023-04-29] MEDS: SODIUM CHLORIDE 0.9% PF INJ 10 ML VIAL ONE (06:42)
[2023-04-29] MEDS: ePHEDrine sulfate 50 MG/ML AMP ONE (06:42)
[2023-04-29] MEDS: fentaNYL citrate PF 100 MCG/2 ML VIAL EPI STA (06:42)
[2023-04-29] MEDS: LIDOCAINE 2%/EPINEPHRINE 1:200,000 20 ML PF EPI STA (06:42)
[2023-04-29] MEDS: DIPHTHER/TETAN/PERTUS Vaccine (Tdap, Adol/Adult) 0.5mL IM ONE (06:43)
[2023-04-29] MEDS: FERROUS SULFATE 325 MG TAB PO SCH (08:29)
[2023-04-29] MEDS: DOCUSATE SODIUM 100 MG CAP PO SCH (08:29)
[2023-04-29] MEDS: BENZOCAINE 20% SPRY 85 APPLN/85 GM CAN EXT PRN (08:29)
[2023-04-29] MEDS: PRENATAL VITAMIN 1 TAB PO SCH (08:29)
[2023-04-29] MEDS: ACETAMINOPHEN 325 MG TAB PO PRN (16:28)
--- NOTE | 2023-04-30 07:23 | Obstetrical Progress Note ---
Date of Service April 30, 2023 Assessment & Plan (1) care and examination: Plan: Doing well today encourage ambulation dc today Admission and Anticipated Discharge Date Admission Date: April 28, 2023 Supervising Physician Co-Signing Physician Notes Resident Physician Supervision Note: I interviewed and examined the patient. Discussed with Dr. Worrell and agree with findings and plan as documented in the note. Any exceptions or clarifications are listed here: PPD#1 doing well DC instructions. Followup 6w PP Documented By: Aminata Washington, Subjective 89 yo post day 1 s/p Ambulation: ambulating normally Voiding: no voiding problems Passing Gas:: Yes Diet Tolerance:: regular diet Lochia:: Small Current Pain Level: minimal Resting comfortably this AM in NAD. Denies BRITO, CP, SOB, N/V/D, LE pain/swelling. desires dc today Review of Systems Review of Systems: reviewed, per HPI Physical Exam Physical Exam: General: patient resting comfortably, NAD, non-toxic in appearance, answers questions appropriately. Skin: warm, dry, intact HEENT: NC/AT, anicteric sclera, conjunctiva without injection, moist mucus membranes. Heart: +S1/S2, regular, no m/r/g Lungs: equal air entry bilaterally, no rales/rhonchi/wheezes Abd: +BS, soft, NT/ND, uterine fundus firm at umbilicus Ext: warm, no clubbing/cyanosis or edema, Velia's neg. Neuro: nonfocal, speech intact, no facial droop, moving all extremities on comm and. Results & Data Vital Signs (Past 12 Hours) Vital Signs Temp Pulse Resp BP Pulse Ox O2 Del Method 04/29/23 23:10 36.4 C L 76 18 106/68 99 Room Air 04/29/23 20:00 36.8 C 77 18 119/83 98 Room Air Resident Activity Tracking Resident Involvement: Resident Care Provided Care Provided: Adult Hospital Medicine
[2023-04-30] MEDS ORDERED: bisacodyL 5 MG TABEC PO SCH (20:00)
[2023-05-01] MEDS ORDERED: bisacodyL 10 MG SUPP PR PRN
== END 2023-04-30 11:30 | disposition home or self-care (01) | DRG 807 ==
LOC: OPB 19:54 → 4S1 19:57 → 4E2 04-29 05:48